=== PATIENT | female | born 1975 | race African-American/Black ===

== ENCOUNTER 2016-11-16 10:42 | Emergency (ER) | payer BC ==
[2016-11-16 10:54] VITALS: BP 124/70; PULSE 98; TEMP 98; BMI 34.4
--- NOTE | 2016-11-16 11:52 | PDOC ---
History of Present Illness - General History Source: Patient - History of Present Illness Timing/Duration: momentarily Associated Symptoms: denies: chest pain, diaphoresis, fever/chills, headaches, malaise, nausea/vomiting, shortness of breath, weakness <RomanianEmmaSara - Last Filed: 11/16/16 15:55> <Mandeep Jacobson - Last Filed: 11/18/16 08:46> - General Chief Complaint: Syncope/Near Syncope Stated Complaint: Syncope/Near Syncope Time Seen by Provider: 11/16/16 11:21 Past History - Past Medical History HTN: Yes - Surgical History Orthopedic Surgery: Yes (ganglion cyst surgery left wrist 2001) - Immunization History Immunization Up to Date: Yes - Psycho/Social/Smoking Cessation Hx Suicidal Ideation: No Smoking History: Never smoked Have you smoked in the past 12 months: No Information on smoking cessation initiated: No Hx Alcohol Use: No Drug/Substance Use Hx: No <RomanianEmma-Nica - Last Filed: 11/16/16 15:55> <Mandeep Jacobson - Last Filed: 11/18/16 08:46> - Past Medical History Allergies/Adverse Reactions: Allergies Allergy/AdvReac Type Severity Reaction Status Date / Time No Known Allergies Allergy Verified 11/16/16 11:28 Home Medications: Ambulatory Orders NK [No Known Home Medication] 09/21/15 Review of Systems - Review of Systems Constitutional: No: Chills, Fever Respiratory: No: Cough, Shortness of Breath Cardiac (ROS): No: Chest Pain Neurological: No: Headache, Dizziness <RomanianEmmaLanetteNica Last Filed: 11/16/16 15:55> *Physical Exam - Vital Signs Last Vital Signs Temp Pulse Resp BP Pulse Ox 98 F 98 H 20 124/70 97 11/16/16 10:52 11/16/16 10:52 11/16/16 10:52 11/16/16 10:52 11/16/16 10:52 - Physical Exam General Appearance: Yes: Appropriately Dressed. No: Apparent Distress HEENT: positive: Normal Voice Neck: positive: Supple Respiratory/Chest: positive: Lungs Clear, Normal Breath Sounds. negative: Respiratory Distress Cardiovascular: positive: Regular Rate, S1, S2 Gastrointestinal/Abdominal: positive: Soft. negative: Tender Integumentary: positive: Dry, Warm Neurologic: positive: Fully Oriented, Alert, Normal Mood/Affect, Motor Strength 5/5, Finger to Nose. negative: Facial Droop, Confused <Emma WrightSara - Last Filed: 11/16/16 15:55> - Vital Signs Last Vital Signs Temp Pulse Resp BP Pulse Ox 98 F 98 H 20 124/70 97 11/16/16 10:52 11/16/16 10:52 11/16/16 10:52 11/16/16 10:52 11/16/16 10:52 <Mandeep Jacobson - Last Filed: 11/18/16 08:46> Heart Score/ECG Review - ECG Intrepretation Comment:: 11/16/16 12:57 Twelve-lead EKG was performed and reviewed by me. There is normal sinus rhythm with a normal rate. The axis is normal. The intervals are normal. There are no ST or T wave abnormalities. Impression: Normal twelve-lead EKG <RomanianEmmaKassandra - Last Filed: 11/16/16 15:55> ED Treatment Course - LABORATORY CBC & Chemistry Diagram: 11/16/16 11:20 11/16/16 11:20 <RomanianEmmaSara - Last Filed: 11/16/16 15:55> - LABORATORY CBC & Chemistry Diagram: 11/16/16 11:20 11/16/16 11:20 - ADDITIONAL ORDERS Additional order review: 11/16/16 11:20 RBC 4.81 MCV 70.4 L MCHC 31.6 L RDW 18.3 H MPV 8.4 Neutrophils % 63.2 Lymphocytes % 26.5 Monocytes % 7.3 Eosinophils % 2.4 Basophils % 0.6 - Medications Given in the ED: ED Medications Discontinued Medications Generic Name Dose Route Start Last Admin Trade Name Freq PRN Reason Stop Dose Admin Potassium Chloride 100 mls @ 100 mls/hr 11/16/16 13:00 11/16/16 12:55 Potassium Chloride 10 Meq Premix Ivpb - IVPB 11/16/16 13:59 100 mls/hr Q60M MAYNOR Administration Potassium Chloride 40 meq 11/16/16 12:53 11/16/16 13:16 K-Dur - PO 11/16/16 12:54 40 meq ONCE ONE Administration <Mandeep Jacobson - Last Filed: 11/18/16 08:46> Medical Decision Making - Medical Decision Making 11/16/16 11:55 41-year-old female, denies any past medical history, not currently on any medications here with transient altered mental status. Patient states while sitting at her desk at work today, suddenly found herself surrounded by her coworkers who told her that there were several seconds where patient was "staring straight ahead" in her chair wand was not responding to her name being called multiple times by coworkers. No fall or seizure like activity. No headache, dizziness, or vision, slurred speech, focal weakness, chest pain or shortness of breath. No history of similar episode. Feels well as per pt See exam Transient AMS ? absence seizure, less likely cardiac or CVA No witnessed fall or convulsions Asx at this time Stable w/ unremarkable exam -ekg and basic labs at this time, will discuss ?CT head w/ ED attg 11/16/16 12:57 Creatinine 1.3, was 0.8 year ago. Potassium 2.9. EKG unremarkable. Will replete K and scan head as discussed with ED attending. Plan is to keep patient overnight in observation unit but patient refusing admission at this time. 11/16/16 12:58 11/16/16 15:59 CT head negative. Patient has remained stable in ED with no further episodes of altered mental status. I explained to patient that we still wanted to keep her overnight and also get a repeat of her potassium which patient declines at this time. States she wants to be discharged and will go see her PMD tomorrow. Medical risks explained to patient who verbalize understanding. Has capacity to make decision 11/16/16 16:00 <Maribel Wright - Last Filed: 11/16/16 15:55> - Medical Decision Making The patient was seen and evaluated in conjunction with FROILAN Torres under my direct supervision, ancillary studies were reviewed. I agree with the plan as outlined by FROILAN Wright . <Mandeep Jacobson - Last Filed: 11/18/16 08:46> *DC/Admit/Observation/Transfer <Maribel Wright - Last Filed: 11/16/16 15:55> <Mandeep Jacobson - Last Filed: 11/18/16 08:46> Diagnosis at time of Disposition: Transient alteration of awareness - Discharge Dispostion Disposition: AGAINST MEDICAL ADVICE Condition at time of disposition: Stable - Referrals Referrals: Pattie Hanks MD [Primary Care Provider] - - Patient Instructions Printed Discharge Instructions: DI for Altered Mental Status Additional Instructions: The source of your symptoms are unclear at this time. If symptoms recur, please return immediately. Otherwise, follow-up with your PMD tomorrow
[2016-11-16 12:01] LABS: BASOPHIL 0.6 % (0-2.0); EOSINOPHIL 2.4 % (0-4.5); MCH 22.2 pg (25.7-33.7); MCHC 31.6 g/dl (32.0-36.0); MEAN CELL VOLUME 70.4 fl (80-96); MEAN PLT VOLUME 8.4 fl (7.5-11.1); NEUTROPHILS 63.2 % (42.8-82.8); PLATELET COUNT 323 K/MM3 (134-434); RDW 18.3 % (11.6-15.6); WHITE BLOOD COUNT 5.2 K/mm3 (4.0-10.0)
[2016-11-16 12:17] LABS: ALBUMIN 3.7 g/dl (3.4-5.0); ANION GAP 9 (8-16); CALCIUM 8.9 mg/dL (8.5-10.1); CO2 32 mmol/L (21-32); GLUCOSE,RANDOM 111 mg/dL (74-106)
[2016-11-16 12:27] LABS: ALK PHOS 71 U/L (45-117); BILIRUBIN,TOTAL 0.3 mg/dL (0.2-1.0); CREATININE 1.3 mg/dL (0.55-1.02); SGOT/AST 10 U/L (15-37); SGPT/ALT 12 U/L (12-78); TOT PROT 7.8 g/dl (6.4-8.2); TROPONIN I < 0.02 ng/ml (0.00-0.05)
[2016-11-16] MEDS ORDERED: POTASSIUM CHLORIDE TABS 20 MEQ TABLET.ER (FP) PO ONE ×2 (12:53→12:57)
[2016-11-16] MEDS ORDERED: KCL 10 MEQ IVPB 100 ML IVPB ONE (12:58)
[2016-11-16] MEDS ORDERED: KCL 10 MEQ IVPB 100 ML IVPB SCH ×2 (13:00)
--- NOTE | 2016-11-16 13:11 | EKG ---
Test Reason : Blood Pressure : / mmHG Vent. Rate : 085 BPM Atrial Rate : 085 BPM P-R Int : 158 ms QRS Dur : 076 ms QT Int : 374 ms P-R-T Axes : 056 024 008 degrees QTc Int : 445 ms NORMAL SINUS RHYTHM POSSIBLE LEFT ATRIAL ENLARGEMENT NONSPECIFIC T WAVE ABNORMALITY ABNORMAL ECG NO PREVIOUS ECGS AVAILABLE Confirmed by GRECIA GRIFFIN MD ([id number]) on 11/16/2016 1:11:28 PM Referred By: Confirmed By:GRECIA GRIFFIN MD
[2016-11-16 14:25] LABS: URINE APPEARANCE CLOUDY; URINE BILIRUBIN NEGATIVE (NEGATIVE); URINE BLOOD 3+ (NEGATIVE); URINE COLOR YELLOW; URINE GLUCOSE (UA) NEGATIVE (NEGATIVE); URINE KETONE TRACE (NEGATIVE); URINE LEUK ESTERASE TRACE (NEGATIVE); URINE NITRITE NEGATIVE (NEGATIVE); URINE PROTEIN 1+ (NEGATIVE); URINE UROBILINOGEN NEGATIVE E.U./dl (0.2-1.0)
[2016-11-16 14:36] LABS: URINE HYALINE CAST 19 /lpf; URINE MUCUS RARE; URINE RBC 23 /hpf (0-3); URINE WBC 5 /hpf (3-5)
== END 2016-11-16 16:07 | disposition left against medical advice (07) ==
LOC: JER 10:42
PROC: 3E0337Z Introduction of Electrolytic and Water Balance Substance into Peripheral Vein, Percutaneous Approach (ICD-10-PCS; principal; 2016-11-16)
DX: R40.4 Transient alteration of awareness (principal); I10 Essential (primary) hypertension
CPT/HCPCS: 36415; 70450-TC; 80053; 81003; 81015; 82550; 84484; 84703; 85025; 93005; 93010; 99284-25